=== PATIENT | male | born 1975 | race Caucasian/White ===

== ENCOUNTER 2018-11-02 08:59 | Inpatient (IN) | payer BC, OTHER ==
[2018-11-02 09:03] VITALS: BMI 25.1
[2018-11-02] MEDS ORDERED: Morphine 4 MG/ML VIAL IVP ONE ×2 (09:31→11:33)
[2018-11-02] MEDS ORDERED: Sodium Chloride 0.9% 1,000 ML IV STA (09:33)
--- NOTE | 2018-11-02 09:37 | ED PDOC ---
HPI: General Adult Time Seen by Provider: 11/02/18 09:34 Chief Complaint (Nursing): Abdominal Pain Chief Complaint (Provider): ABD PAIN History Per: Patient (43 Y/O MALE HERE WITH COMPLAINT OF LEFT SIDED ABDOMINAL PAIN NOTED GRADUALLY WORSENING SINCE YESTERDAY 2 PM AFTER EATING BAKED ORTHOPEDIC CODER. PATIENT STATES HE HAS STATES HE VOMITING ONCE DAY PRIOR AND THEN MULTI PLE TIMES AFTER EPISODE BEGAN. NO H/O ALCOHOL ABUSE/DRUGS/SMOKING. H/O HERNIA REPAIR. DID NOT TAKE ANY OTC MEDICATIONS.) Past Medical History Reviewed: Historical Data, Nursing Documentation, Vital Signs Vital Signs: Last Vital Signs Temp 98.1 F 11/02/18 09:03 Pulse 88 11/02/18 09:03 Resp 17 11/02/18 09:03 BP 158/78 H 11/02/18 09:03 Pulse Ox 100 11/02/18 09:03 - Family History Family History: States: No Known Family Hx - Home Medications Home Medications: Ambulatory Orders Medication Instructions Recorded No Known Home Med 11/02/18 - Allergies Allergies/Adverse Reactions: Allergies Allergy/AdvReac Type Severity Reaction Status Date / Time No Known Allergies Allergy Verified 11/02/18 09:26 Review of Systems ROS Statement: Except As Marked, All Systems Reviewed And Found Negative Gastrointestinal: Positive for: Vomiting, Abdominal Pain Physical Exam - Reviewed Nursing Documentation Reviewed: Yes Vital Signs Reviewed: Yes - Physical Exam Appears: Positive for: Well, Non-toxic, No Acute Distress Head Exam: Positive for: ATRAUMATIC, NORMAL INSPECTION, NORMOCEPHALIC Skin: Positive for: Normal Color, Warm, DRY Eye Exam: Positive for: EOMI, Normal appearance, PERRL ENT: Positive for: Normal ENT Inspection Neck: Positive for: Normal, Painless ROM Cardiovascular/Chest: Positive for: Regular Rate, Rhythm Respiratory: Positive for: CNT, Normal Breath Sounds Gastrointestinal/Abdominal: Positive for: Normal Exam, Soft, Tenderness (LUQ/LLQ TENDERNESS) Back: Positive for: Normal Inspection. Negative for: L CVA Tenderness, R CVA Tenderness Extremity: Positive for: Normal ROM Neurological/Psych: Positive for: Awake, Alert, Normal Tone - Laboratory Results Result Diagrams: 11/02/18 10:00 11/02/18 10:00 - ECG O2 Sat by Pulse Oximetry: 100 - Progress ED Course And Treament: MORPHINE 4 MG IV X 1 DOSE ZOFRAN 4 MG IV X 1 DOSE PEPCID 20 MG IV X 1 DOSE NS 1 LITER WIDE OPEN 2nd liter LR started d/w Dr. Gutierrez. We will start LR 3rd liter after. CT ABD/PELVIS FINDINGS: LOWER THORAX: Unremarkable. LIVER: Fatty liver. GALLBLADDER AND BILE DUCTS: Unremarkable. PANCREAS: Extensive pen pancreatic fluid extending into both paracolic gutters and into the pelvis as well as into right subhepatic region consistent with acute p ancreatitis. No evidence of pancreatic necrosis. SPLEEN: Unremarkable. ADRENALS: Unremarkable. No mass. KIDNEYS AND URETERS: Unremarkable. No hydronephrosis. No solid mass. VASCULATURE: Unremarkable. No aortic aneurysm. No aortic atherosclerotic calcification or mural plaque present. BOWEL: Unremarkable. No obstruction. No gross mural thickening. APPENDIX: Normal appendix. PERITONEUM: Unremarkable. No free fluid. No free air. LYMPH NODES: Unremarkable. No enlarged lymph nodes. BLADDER: Unremarkable. REPRODUCTIVE: Unremarkable. BONES: No acute fracture. OTHER FINDINGS: None. IMPRESSION: Extensive pen pancreatic fluid extending into both paracolic gutters and into the pelvis as well as into right subhepatic region consistent with acute pancreatitis. No evidence of pancreatic necrosis. dw Dr. Mccarthy. recommends pepcid/protonix and lr 200 per hour for maintenance Disposition - Clinical Impression Clinical Impression: Acute pancreatitis - Patient ED Disposition Is Patient to be Admitted: Yes - Disposition Disposition Time: 12:35 Condition: FAIR - Pt Status Changed To: Hospital Disposition Of: Inpatient - Admit Certification Admit to Inpatient:: After my assessment, the patient will require hos pitalization for at least two midnights. This is because of the severity of symptoms shown, intensity of services needed, and/or the medical risk in this patient being treated as an outpatient.
[2018-11-02] MEDS ORDERED: Morphine 4 MG/ML VIAL ONE ×2 (09:41→11:42)
[2018-11-02 10:05] LABS: VENOUS BLOOD GAS BASE EXCESS 2.7 mmol/L (0.0-2.0); VENOUS BLOOD GAS PCO2 50 mmHg (40-60); VENOUS BLOOD GAS PO2 21 mm/Hg (30-55); VENOUS BLOOD PH 7.37 (7.32-7.43)
[2018-11-02 10:29] LABS: BASO % 0.2 % (0.0-2.0); EOS % 0.4 % (0.0-4.0); HEMOGLOBIN 13.8 g/dL (12.0-18.0); LYMPH # 0.8 K/uL (1.0-4.3); LYMPH % 8.4 % (20.0-40.0); MEAN CELL VOLUME 93.9 fl (80.0-94.0); MEAN CORPUSCULAR HEMOGLOBIN 31.8 pg (27.0-31.0); MEAN CORPUSCULAR HGB CONC 33.9 g/dL (33.0-37.0); MEAN PLATELET VOLUME 9.6 fl (7.2-11.7); MONO # 0.6 K/uL (0.0-0.8); NEUT # 7.9 K/uL (1.8-7.0); NRBC % 0.1 % (0.0-0.0); PLATELET COUNT 157 K/uL (130-400); RBC 4.33 Mil/uL (4.40-5.90); RED CELL DISTRIBUTION WIDTH 12.7 % (11.5-14.5); WHITE BLOOD COUNT 9.3 K/uL (4.8-10.8)
[2018-11-02 10:31] LABS: URINE BILIRUBIN NEGATIVE (NEGATIVE); URINE BLOOD SMALL (NEGATIVE); URINE CLARITY SLIGHTY-CLOUDY (Clear); URINE GLUCOSE (UA) NEG (NEGATIVE); URINE LEUKOCYTE ESTERASE NEG Leu/uL (Negative); URINE PROTEIN 30 mg/dL (NEGATIVE); URINE UROBILINOGEN 0.2-1.0 mg/dL (0.2-1.0)
[2018-11-02 10:33] LABS: URINE COLOR YELLOW (YELLOW)
[2018-11-02 10:40] LABS: ALB/GLOB RATIO 1.4 (1.0-2.1); ALBUMIN 4.3 g/dL (3.5-5.0); ALT/SGPT 65 U/L (21-72); AST/SGOT 78 U/L (17-59); BLOOD UREA NITROGEN 11 mg/dl (9-20); CALCIUM 9.3 mg/dL (8.4-10.2); GFR NON-AFRICAN AMERICAN > 60
[2018-11-02] MEDS ORDERED: Sodium Chloride 0.9% 50 ML IV ONE (11:04)
[2018-11-02] MEDS ORDERED: Iohexol 300 100 ML IJ ONE (11:04)
[2018-11-02 11:07] LABS: LIPASE 8898 U/L (23-300)
[2018-11-02 11:08] LABS: LYMPHOCYTE 10 % (20-50); MONOCYTE 5 % (0-10); NEUTROPHIL 85 % (42-75); PLATELET ESTIMATE NORMAL (NORMAL); TOTAL CELLS COUNTED 100
[2018-11-02] MEDS ORDERED: Lactated Ringer's 1,000 ML IV SCH ×2 (11:45→12:45)
--- NOTE | 2018-11-02 12:31 | CT ---
Date of service: 11/02/2018 PROCEDURE: CT Abdomen and Pelvis with contrast HISTORY: LUQ/LEFT SIDED PAIN R/O PANCREATITIS/R/O DIVERTICU COMPARISON: None. TECHNIQUE: Contrast dose: Radiation dose: Total exam DLP = 621.77 mGy-cm. This CT exam was performed using one or more of the following dose reduction techniques: Automated exposure control, adjustment of the mA and/or kV according to patient size, and/or use of iterative reconstruction technique. FINDINGS: LOWER THORAX: Unremarkable. LIVER: Fatty liver. GALLBLADDER AND BILE DUCTS: Unremarkable. PANCREAS: Extensive pen pancreatic fluid extending into both paracolic gutters and into the pelvis as well as into right subhepatic region consistent with acute pancreatitis. No evidence of pancreatic necrosis. SPLEEN: Unremarkable. ADRENALS: Unremarkable. No mass. KIDNEYS AND URETERS: Unremarkable. No hydronephrosis. No solid mass. VASCULATURE: Unremarkable. No aortic aneurysm. No aortic atherosclerotic calcification or mural plaque present. BOWEL: Unremarkable. No obstruction. No gross mural thickening. APPENDIX: Normal appendix. PERITONEUM: Unremarkable. No free fluid. No free air. LYMPH NODES: Unremarkable. No enlarged lymph nodes. BLADDER: Unremarkable. REPRODUCTIVE: Unremarkable. BONES: No acute fracture. OTHER FINDINGS: None. IMPRESSION: Extensive pen pancreatic fluid extending into both paracolic gutters and into the pelvis as well as into right subhepatic region consistent with acute pancreatitis. No evidence of pancreatic necrosis.
--- NOTE | 2018-11-02 13:05 | CP.PCM.HP ---
History of Present Illness - History of Present Illness History of Present Illness: 43 Y/O male with no significant PMH who presents to [facility] ED with c/o nausea and epigastric-mesogastric abdominal pain that started yesterday around 2 PM. Patient reports he started feeling nauseous yesterday after he ate a portion of baked chicken and had 2 episodes of clear vomiting, then he started with "stomach pain". The pain was reaching 8/10 in intensity, stabbing in character, with some radiation to the back, with no alleviating or other worsening factors noted, and prompted him to come to the hospital this morning. Patient endorses that the prior night on Saturday he was drinking more than usual, and had approximately a pint of Vodka, patient states that in the last 5 months he has been drinking every weekend about 5 shots of vodka and also 3 to 4 times during week days he drinks 2 cups of wine or combination of other drinks. Patient denies any similar episode in the past, also denies having noted blood in the vomiting, diarrhea, blood in the stools, or chest pain, SOB, or fever at this time. In the ED patient admits some improvement of the pain and nausea, pain is 6/10 at the time of this encounter. ROS: 12 systems reviewed and found unremarkable, except as per HPI. PMD: none PMH: Denies FMH: Denies SURG: Hernia repair approximately 20 years ago. Social: ETOH: last 5 months approximately 5 shots of vodka on weekends and also 3 to 4 times during week days he drinks 2 cups of wine. Quit smoking 8 months a go, denies recreational drug use. MEDS: None Next of barry: Father [phone] ED Course: VS on arrival: HR 88, BP 158/78, Temp 98.1F, RR 17 LABS: CBC H/H 13.8/40.7 Chem: AST 78, ALT 65 Total Bili 1.8 [id number] ETOH<10 CT ABD & PElvis IV contrast shows fiindings consistent with acute pancreatitis. ABDM US: Gallbladder unremarkable, no gallstones. Fibrofatty infiltration of liver. Treatments ED: IVFs NS x 1L bolus, LR x 1 L 500ml/hr Pepcid 20 IV x 1, Zofran 4 IV, Morphine 4 mg x 2 doses given Present on Admission - Present on Admission Any Indicators Present on Admission: No History of DVT/PE: No History of Uncontrolled Diabetes: No Urinary Catheter: No Decubitus Ulcer Present: No Past Patient History - Past Social History Smoking Status: Former Smoker - PSYCHIATRIC Hx Substance Use: No - SURGICAL HISTORY Hx Herniorrhaphy: Yes - ANESTHESIA Hx Anesthesia: Yes Hx Anesthesia Reactions: No Meds Allergies/Adverse Reactions: Allergies Allergy/AdvReac Type Severity Reaction Status Date / Time No Known Allergies Allergy Verified 11/02/18 09:26 Physical Exam - Constitutional Appears: No Acute Distress - Head Exam Head Exam: ATRAUMATIC, NORMOCEPHALIC - Eye Exam Eye Exam: EOMI - ENT Exam ENT Exam: Mucous Membranes Moist - Neck Exam Neck exam: Positive for: Full Rom - Respiratory Exam Respiratory Exam: Clear to Auscultation Bilateral - Cardiovascular Exam Cardiovascular Exam: REGULAR RHYTHM, +S1, +S2 - GI/Abdominal Exam GI & Abdominal Exam: Diminished Bowel Sounds, Soft, Tenderness Additional comments: mild epigastric tenderness noted - Extremities Exam Extremities exam: Negative for: calf tenderness - Neurological Exam Neurological exam: Alert, Oriented x3 - Psychiatric Exam Psychiatric exam: Normal Affect - Skin Skin Exam: Normal Color, Warm Results - Vital Signs Recent Vital Signs: Last Vital Signs Temp 98.1 F 11/02/18 09:03 Pulse 74 11/02/18 12:50 Resp 16 11/02/18 12:50 BP 111/59 L 11/02/18 12:50 Pulse Ox 100 11/02/18 12:35 - Labs Result Diagrams: 11/02/18 10:00 11/02/18 10:00 Labs: Laboratory Results - last 24 hr 11/02/18 11/02/18 11/02/18 09:58 10:00 10:00 WBC 9.3 RBC 4.33 L Hgb 13.8 Hct 40.7 MCV 93.9 MCH 31.8 H MCHC 33.9 RDW 12.7 Plt Count 157 MPV 9.6 Neut % (Auto) 85.0 H Lymph % (Auto) 8.4 L [place] % (Auto) 6.0 Eos % (Auto) 0.4 Baso % (Auto) 0.2 Neut # (Auto) 7.9 H Lymph # (Auto) 0.8 L [place] # (Auto) 0.6 Eos # (Auto) 0.0 Baso # (Auto) 0.0 Neutrophils % (Manual) 85 H Lymphocytes % (Manual) 10 L Monocytes % (Manual) 5 Platelet Estimate Normal pO2 21 L VBG pH 7.37 VBG pCO2 50 VBG HCO3 25.3 VBG Total CO2 30.4 H VBG O2 Sat (Calc) 38.3 L VBG Base Excess 2.7 H VBG Potassium 3.3 L Sodium 135.0 138 Chloride 100.0 98 Glucose 159 H Lactate 2.0 FiO2 21.0 Blood Gas Comments Lac=2.0 Crit Value Called To dakota Parson Crit Value Called By 22 Crit Value Read Back Y Blood Gas Notified Time 1004 Potassium 3.8 Carbon Dioxide 28 Anion Gap 16 BUN 11 Creatinine 0.9 Est GFR ( Amer) > 60 Est GFR (Non-Af Amer) > 60 Random Glucose 151 H Calcium 9.3 Total Bilirubin 1.8 H AST 78 H ALT 65 Alkaline Phosphatase 78 Total Protein 7.3 Albumin 4.3 Globulin 3.1 Albumin/Globulin Ratio 1.4 Lipase 8898 H Venous Blood Potassium 3.3 L Urine Color Urine Clarity Urine pH Ur Specific [place] Urine Protein Urine Glucose (UA) Urine Ketones Urine Blood Urine Nitrate Urine Bilirubin Urine Urobilinogen Ur Leukocyte Esterase Urine RBC (Auto) Urine Microscopic WBC Alcohol, Quantitative 11/02/18 11/02/18 10:00 11:50 WBC RBC Hgb Hct MCV MCH MCHC RDW Plt Count MPV Neut % (Auto) Lymph % (Auto) [place] % (Auto) Eos % (Auto) Baso % (Auto) Neut # (Auto) Lymph # (Auto) [place] # (Auto) Eos # (Auto) Baso # (Auto) Neutrophils % (Manual) Lymphocytes % (Manual) Monocytes % (Manual) Platelet Estimate pO2 VBG pH VBG pCO2 VBG HCO3 VBG Total CO2 VBG O2 Sat (Calc) VBG Base Excess VBG Potassium Sodium Chloride Glucose Lactate FiO2 Blood Gas Comments Crit Value Called To Crit Value Called By Crit Value Read Back Blood Gas Notified Time Potassium Carbon Dioxide Anion Gap BUN Creatinine Est GFR ( Amer) Est GFR (Non-Af Amer) Random Glucose Calcium Total Bilirubin AST ALT Alkaline Phosphatase Total Protein Albumin Globulin Albumin/Globulin Ratio Lipase Venous Blood Potassium Urine Color Yellow Urine Clarity Slighty-cloudy Urine pH 5.0 Ur Specific [place] 1.027 Urine Protein 30 Urine Glucose (UA) Neg Urine Ketones 20 Urine Blood Small Urine Nitrate Negative Urine Bilirubin Negative Urine Urobilinogen 0.2-1.0 Ur Leukocyte Esterase Neg Urine RBC (Auto) 1 Urine Microscopic WBC < 1 Alcohol, Quantitative < 10 Assessment & Plan - Assessment and Plan (Free Text) Assessment: 43 Y/O male with no significant PMH who presents to [facility] ED with c/o nausea and epigastric-mesogastric abdominal pain, 8/10 in intensity with radiation to the back. Patient endorses heavy drinking (1 pint of Vodka) the night before symptoms started. Patient has Lipase elevation of [address] Scan of Abdomen & Pelvis shows w/ IV contrast findings consistent with acute pancreatitis. Patient will be admitted for evaluation and management of acute pancreatitis. Plan: Acute Pancreatitis [id number] CT ABD & PElvis IV contrast shows fiindings consistent with acute pancreatitis. ABDM US: Gallbladder unremarkable, no gallstones. Fibrofatty infiltration of liver. NPO diet, except meds VS monitoring IVFs: NS x1 L bolus given, LR x1L 500 ml/h, c/w LR 250ml/hr Pain management: morphine 2 mg IV Q4h PRN moderate pain, dilaudid 0.5 mg IV q4h PRN severe pain Zofran 4 mg IV Q4h PRN nausea GAstroenterology consult: Dr Max, recommendation appreciated F/u CBC and CMP in AM Alcohol Abuse [facility] protocol, monitor and prevent alcohol withdrawal Ativan 1 mg PO Q6h PRN agitation DVT prophylaxis Lovenox 40 SC QD Diet NPO, except meds for now Continue monitor for pain resolution Full code status
[2018-11-02] MEDS ORDERED: Morphine 4 MG/ML VIAL IVP PRN (13:19)
--- NOTE | 2018-11-02 13:52 | US ---
Date of service: 11/02/2018 HISTORY: evaluate gallbladder; lipase >8000 COMPARISON: None. TECHNIQUE: Sonographic evaluation of the abdomen. FINDINGS: LIVER: Measures 20 cm. Heterogeneous echogenicity of the liver parenchyma. No mass. No intrahepatic bile duct dilatation. GALLBLADDER: Unremarkable. No gallstones. COMMON BILE DUCT: Measures mm. No stones. No dilatation. PANCREAS: Unremarkable as visualized. No mass. No ductal dilatation. RIGHT KIDNEY: Measures cm. Normal echogenicity. No calculus, mass, or hydronephrosis. LEFT KIDNEY: Measures cm. Normal echogenicity. No calculus, mass, or hydronephrosis. SPLEEN: Normal in size and contour. No mass. AORTA: No aneurysmal dilatation. IVC: Unremarkable. OTHER FINDINGS: Mild perihepatic ascites. IMPRESSION: Fibro/fatty infiltration of the liver. Mild perihepatic ascites.
[2018-11-02] MEDS: Lactated Ringer's 1,000 ML IV SCH ×3 (15:43→23:30)
[2018-11-02 19:04] LABS: HDL CHOLESTEROL 63 MG/DL (30-70)
[2018-11-02 19:14] LABS: LDL CHOLESTEROL 39 mg/dL (0-129)
[2018-11-03] MEDS: Lactated Ringer's 1,000 ML IV SCH (03:30)
[2018-11-03 05:05] VITALS: RESP 20
[2018-11-03 05:44] LABS: HEMOGLOBIN 11.1 g/dL (12.0-18.0); MEAN CELL VOLUME 94.4 fl (80.0-94.0); MEAN CORPUSCULAR HEMOGLOBIN 32.5 pg (27.0-31.0); MEAN CORPUSCULAR HGB CONC 34.5 g/dL (33.0-37.0); RBC 3.41 Mil/uL (4.40-5.90); RED CELL DISTRIBUTION WIDTH 12.9 % (11.5-14.5); WHITE BLOOD COUNT 8.3 K/uL (4.8-10.8)
[2018-11-03 05:53] LABS: ALB/GLOB RATIO 1.1 (1.0-2.1); ALT/SGPT 43 U/L (21-72); AMYLASE 356 U/L (30-110); AST/SGOT 61 U/L (17-59); BLOOD UREA NITROGEN 5 mg/dl (9-20); CALCIUM 8.5 mg/dL (8.4-10.2); GFR NON-AFRICAN AMERICAN > 60
[2018-11-03 06:05] LABS: LIPASE 3164 U/L (23-300)
--- NOTE | 2018-11-03 07:31 | CP.PCM.PN ---
Objective - Vital Signs/Intake and Output Vital Signs (last 24 hours): Temp Pulse Resp BP Pulse Ox 100 F H 73 20 122/70 99 11/03/18 05:04 11/03/18 05:04 11/03/18 05:04 11/03/18 05:04 11/03/18 05:04 - Medications Medications: Current Medications Enoxaparin Sodium (Lovenox) 40 mg SC DAILY GOVIND; Protocol Hydromorphone HCl (Dilaudid) 0.5 mg IVP Q4 PRN PRN Reason: Pain, severe (8-10) Lactated Ringer's (Lactated Ringer's) 1,000 mls @ 250 mls/hr IV .Q4H GOVIND Last Admin: 11/03/18 03:30 Dose: 250 mls/hr Lorazepam (Ativan) 1 mg PO Q6H PRN PRN Reason: Agitation Morphine Sulfate (Morphine) 2 mg IVP Q4 PRN PRN Reason: Pain, moderate (4-7) Pantoprazole Sodium (Protonix Inj) 40 mg IVP DAILY GOVIND - Labs Labs: 11/03/18 04:40 11/03/18 04:40
[2018-11-03] MEDS ORDERED: Enoxaparin 40 mg Syringe SC SCH (09:00)
--- NOTE | 2018-11-03 09:18 | CON ---
REFERRING PHYSICIAN: Dr. Gutierrez. HISTORY OF PRESENT ILLNESS: This is a very pleasant 43-year-old gentleman, who presented to the emergency room with a 24-hour history of abdominal pain discomfort, some nausea and vomiting, found to have a lipase of above 8000, who is referred for GI evaluation. The patient states that for the last several months he has been binging quite a bit on alcohol, and he had been drinking again this weekend, and then yesterday, he developed this abdominal pain discomfort, nausea, and vomiting. It got worse overnight prompting him to come to the emergency room where he was found to have an elevated lipase of above 8000, but CAT scan findings showed significant acute pancreatitis with peripancreatic inflammation of fluid tracking down to the pericolic gutters on both sides. The patient presently is lying comfortably in bed. He is still having some pain and discomfort, but he has been receiving pain medicine. He denies any nausea or vomiting. There has been no fever. He is not having any loose stools or any blood per rectum. He is not taking any medication at home. ALLERGIES: HE HAS NO KNOWN DRUG ALLERGIES. PAST MEDICAL HISTORY: Unremarkable. PAST SURGICAL HISTORY: He had an inguinal hernia repair in the past. FAMILY HISTORY: Noncontributory. SOCIAL HISTORY: He started smoking 9 months ago. He has been binging on alcohol as already mentioned. He denies any drug use. . PHYSICAL EXAMINATION: GENERAL: He is a well-developed, well-nourished gentleman, awake, alert, and oriented x3. No acute distress but he complains of abdominal pain. VITAL SIGNS: His vital signs are stable. He is afebrile. ABDOMEN: His abdomen is soft with good bowel sounds. Some generalized tenderness but more so in the upper half of the abdomen. No palpable masses or lesions. LABORATORY DATA: As mentioned, lipase over 8000. Bilirubin is elevated 1.8. He has an elevation of AST. His CBC is unremarkable as his SMA-7. CAT scan is as per the HPI. Ultrasound was also done, it shows a fatty liver and enlarged liver at 20 cm but no gallstones or any biliary disease noted. IMPRESSION AND PLAN: A 43-year-old gentleman with acute pancreatitis, more likely from alcohol intoxication and use. I had a long discussion with him about alcohol and pancreatitis. At this point in time, he should be kept n.p.o. IV Protonix has been ordered, aggressively hydrated him with Lactated Ringer's at about 200 to 250 mL per hour. Repeat his lab tomorrow, and we will follow along with you. Dimas Taylor MD
--- NOTE | 2018-11-03 11:55 | CP.PCM.DIS ---
Provider - Provider Date of Admission: 11/02/18 12:32 Attending physician: Mayte Gutierrez DO Consults: 11/02/18 13:07 Gastroenterology Consult Stat Comment: pancreatitis Consulting Provider: Haile Max Consulting Physician: Haile Max Reason for Consult: pancreatitis Time Spent in preparation of Discharge (in minutes): 33 Hospital Course - Lab Results Lab Results: Micro Results 11/02/18 10:00 Blood-Venous Blood Culture - Preliminary NO GROWTH AFTER 24 HOURS 11/02/18 09:45 Blood-Venous Blood Culture - Preliminary NO GROWTH AFTER 24 HOURS Most Recent Lab Values WBC 8.3 K/uL (4.8-10.8) 11/03/18 04:40 RBC 3.41 Mil/uL (4.40-5.90) L 11/03/18 04:40 Hgb 11.1 g/dL (12.0-18.0) L D 11/03/18 04:40 Hct 32.2 % (35.0-51.0) L 11/03/18 04:40 MCV 94.4 fl (80.0-94.0) H 11/03/18 04:40 MCH 32.5 pg (27.0-31.0) H 11/03/18 04:40 MCHC 34.5 g/dL (33.0-37.0) 11/03/18 04:40 RDW 12.9 % (11.5-14.5) 11/03/18 04:40 Plt Count 115 K/uL (130-400) L D 11/03/18 04:40 MPV 9.6 fl (7.2-11.7) 11/02/18 10:00 Neut % (Auto) 85.0 % (50.0-75.0) H 11/02/18 10:00 Lymph % (Auto) 8.4 % (20.0-40.0) L 11/02/18 10:00 [place] % (Auto) 6.0 % (0.0-10.0) 11/02/18 10:00 Eos % (Auto) 0.4 % (0.0-4.0) 11/02/18 10:00 Baso % (Auto) 0.2 % (0.0-2.0) 11/02/18 10:00 Neut # (Auto) 7.9 K/uL (1.8-7.0) H 11/02/18 10:00 Lymph # (Auto) 0.8 K/uL (1.0-4.3) L 11/02/18 10:00 [place] # (Auto) 0.6 K/uL (0.0-0.8) 11/02/18 10:00 Eos # (Auto) 0.0 K/uL (0.0-0.7) 11/02/18 10:00 Baso # (Auto) 0.0 K/uL (0.0-0.2) 11/02/18 10:00 Neutrophils % (Manual) 85 % (42-75) H 11/02/18 10:00 Lymphocytes % (Manual) 10 % (20-50) L 11/02/18 10:00 Monocytes % (Manual) 5 % (0-10) 11/02/18 10:00 Platelet Estimate Normal (NORMAL) 11/02/18 10:00 pO2 21 mm/Hg (30-55) L 11/02/18 09:58 VBG pH 7.37 (7.32-7.43) 11/02/18 09:58 VBG pCO2 50 mmHg (40-60) 11/02/18 09:58 VBG HCO3 25.3 mmol/L 11/02/18 09:58 VBG Total CO2 30.4 mmol/L (22-28) H 11/02/18 09:58 VBG O2 Sat (Calc) 38.3 % (40-65) L 11/02/18 09:58 VBG Base Excess 2.7 mmol/L (0.0-2.0) H 11/02/18 09:58 VBG Potassium 3.3 mmol/L (3.6-5.2) L 11/02/18 09:58 Sodium 135.0 mmol/L (132-148) 11/02/18 09:58 Chloride 100.0 mmol/L (98-107) 11/02/18 09:58 Glucose 159 mg/dL (75-110) H 11/02/18 09:58 Lactate 2.0 mmol/L (0.7-2.1) 11/02/18 09:58 FiO2 21.0 % 11/02/18 09:58 Blood Gas Comments Lac=2.0 11/02/18 09:58 Crit Value Called To dakota Parson 11/02/18 09:58 Crit Value Called By 22 11/02/18 09:58 Crit Value Read Back Y 11/02/18 09:58 Blood Gas Notified Time 1004 11/02/18 09:58 Sodium 139 mmol/l (132-148) 11/03/18 04:40 Potassium 3.6 MMOL/L (3.6-5.0) 11/03/18 04:40 Chloride 103 mmol/L (98-107) 11/03/18 04:40 Carbon Dioxide 29 mmol/L (22-30) 11/03/18 04:40 Anion Gap 11 (10-20) 11/03/18 04:40 BUN 5 mg/dl (9-20) L 11/03/18 04:40 Creatinine 0.8 mg/dl (0.8-1.5) 11/03/18 04:40 Est GFR ( Amer) > 60 11/03/18 04:40 Est GFR (Non-Af Amer) > 60 11/03/18 04:40 Random Glucose 104 mg/dL (75-110) 11/03/18 04:40 Calcium 8.5 mg/dL (8.4-10.2) 11/03/18 04:40 Total Bilirubin 1.0 mg/dl (0.2-1.3) 11/03/18 04:40 AST 61 U/L (17-59) H D 11/03/18 04:40 ALT 43 U/L (21-72) 11/03/18 04:40 Alkaline Phosphatase 49 U/L (38-126) 11/03/18 04:40 Total Protein 5.6 G/DL (6.3-8.2) L 11/03/18 04:40 Albumin 3.0 g/dL (3.5-5.0) L D 11/03/18 04:40 Globulin 2.7 gm/dL (2.2-3.9) 11/03/18 04:40 Albumin/Globulin Ratio 1.1 (1.0-2.1) 11/03/18 04:40 Triglycerides 56 mg/DL (0-149) 11/02/18 18:02 Cholesterol 106 mg/dL (0-199) 11/02/18 18:02 LDL Cholesterol Direct 39 mg/dL (0-129) 11/02/18 18:02 HDL Cholesterol 63 MG/DL (30-70) 11/02/18 18:02 Amylase 356 U/L (30-110) H 11/03/18 04:40 Lipase 3164 U/L (23-300) H 11/03/18 04:40 Venous Blood Potassium 3.3 mmol/L (3.6-5.2) L 11/02/18 09:58 Urine Color Yellow (YELLOW) 11/02/18 10:00 Urine Clarity Slighty-cloudy (Clear) 11/02/18 10:00 Urine pH 5.0 (5.0-8.0) 11/02/18 10:00 Ur Specific [place] 1.027 (1.003-1.030) 11/02/18 10:00 Urine Protein 30 mg/dL (NEGATIVE) 11/02/18 10:00 Urine Glucose (UA) Neg mg/dL (NEGATIVE) 11/02/18 10:00 Urine Ketones 20 mg/dL (NEGATIVE) 11/02/18 10:00 Urine Blood Small (NEGATIVE) 11/02/18 10:00 Urine Nitrate Negative (NEGATIVE) 11/02/18 10:00 Urine Bilirubin Negative (NEGATIVE) 11/02/18 10:00 Urine Urobilinogen 0.2-1.0 mg/dL (0.2-1.0) 11/02/18 10:00 Ur Leukocyte Esterase Neg [place]/uL (Negative) 11/02/18 10:00 Urine RBC (Auto) 1 /hpf (0-3) 11/02/18 10:00 Urine Microscopic WBC < 1 /hpf (0-5) 11/02/18 10:00 Alcohol, Quantitative < 10 mg/dl (0-10) 11/02/18 11:50 - Hospital Course Hospital Course: 43 Y/O male with no significant PMH who presentsed to [facility] ED with c/o nausea and epigastric-mesogastric abdominal pain, 8/10 in intensity with radiation to the back. Patient endorsed on admission heavy drinking before onset of symptoms. Pt reports in the last 5 months he has been drinking every weekend about 5 shots of vodka and also 3 to 4 times during week days he drinks 2 cups of wine or combination of other drinks. On admission CT ABD & PElvis IV contrast showed fiindings consistent with acute pancreatitis. ABDM US showed Gallbladder unremarkable, no gallstones\ and a Fibrofatty infiltration of liver. Lipase level 8898. Patient was admitted with diagnosis of acute pancreatitis. Patient received treatment with IVF NS bolus in ED, and continued LR, placed NPO and pain management accordingly. On second day of hospital course patient shows significant improvement with resolution of pain, Lipase 3164, patient has tolerated soft oral diet well without nausea or vomiting, VS unremarkable. Patient is for discharge home today with instructions to follow up as outpatient with PMD or at [facility]. Discharge Exam - Head Exam Head Exam: ATRAUMATIC, NORMOCEPHALIC - Eye Exam Eye Exam: EOMI - ENT Exam ENT Exam: Mucous Membranes Moist - Respiratory Exam Respiratory Exam: Clear to PA & Lateral - Cardiovascular Exam Cardiovascular Exam: REGULAR RHYTHM, +S1, +S2 - GI/Abdominal Exam GI & Abdominal Exam: Normal Bowel Sounds, Soft. absent: Tenderness - Extremities Exam Extremities exam: normal inspection - Neurological Exam Neurological exam: Alert, Oriented x3 - Psychiatric Exam Psychiatric exam: Normal Affect - Skin Skin Exam: Normal Color, Warm Discharge Plan - Follow Up Plan Condition: FAIR Disposition: HOME/ ROUTINE Instructions: Pancreatitis (DC), Effects of Alcohol on Your Health Additional Instructions: Follow up with your PMD or at [facility] in 2 to 3 days. ED precautions: Return to the ED if your condition recurs, or you have abdominal pain, nausea, vomiting, diarrhea, fever, chest pain, SOB, or other new symptoms or concerns presents. Referrals: [facility] [place] [Outside]
[2018-11-03 12:18] VITALS: BP 130/77; PULSE 78; TEMP 97.7; O2SAT 97
== END 2018-11-03 14:30 | disposition home or self-care (01) | DRG 440 ==
LOC: H.ER 08:59 → H.ERHOLD 12:32 → H.TEL 13:39
PROVIDERS: ADMIT Student in an Organized Health Care Education/Training Program; ATTEND Student in an Organized Health Care Education/Training Program
DX: K85.20 Alcohol induced acute pancreatitis without necrosis or infection (principal); Y90.0 Blood alcohol level of less than 20 mg/100 ml; F10.10 Alcohol abuse, uncomplicated; Z87.891 Personal history of nicotine dependence; Z71.41 Alcohol abuse counseling and surveillance of alcoholic